=== PATIENT | male | born 1990 | race Caucasian/White ===

== ENCOUNTER 2024-08-05 13:36 | Emergency (ER) | payer SELFPAY ==
[~2024-08-05] VITALS: Ht 177.8 cm; Wt 90.7 kg
[2024-08-05 13:45] VITALS: BP_SYST 132; PULSE 68; RESP 16; TEMP 97; O2SAT 99
[2024-08-05 14:47] LABS: BASOPHILS % (AUTO) 0.4 % (0.0-2.0); EOSINOPHILS # (AUTO) 0.1 K/uL (0.0-0.4); EOSINOPHILS % (AUTO) 1.7 % (0.0-4.0); HEMATOCRIT 45.7 % (36-54); HEMOGLOBIN 15.7 g/dL (14.0-18.0); LYMPHOCYTES # (AUTO) 2.5 K/uL (1.0-5.5); LYMPHOCYTES % (AUTO) 32.7 % (20.5-51.5); MEAN CORPUSCULAR HEMOGLOBIN 31 pg (27-31); MEAN CORPUSCULAR HGB CONC 34 % (32-36); MEAN CORPUSCULAR VOLUME 90 fL (79.0-98.0); MONOCYTES # (AUTO) 0.5 K/uL (0.0-1.0); NEUTROPHILS # (AUTO) 4.4 K/uL (1.8-7.7); NEUTROPHILS % (AUTO) 59.2 % (40.0-70.0); PLATELET COUNT (AUTO) 228 K/uL (130-430); RED BLOOD CELL COUNT(AUTO) 5.06 MIL/uL (4.2-6.2); RED CELL DISTRIBUTION WIDTH 12.6 % (9.0-15.0); WHITE BLOOD COUNT (AUTO) 7.5 K/uL (4.8-10.8)
[2024-08-05 14:56] LABS: ANION GAP 5 (5-15); CALCIUM 9.7 mg/dL (8.4-11.0); CARBON DIOXIDE 31 mmol/L (23-29); CHLORIDE 100 mmol/L (98-107); CREATININE 1.16 mg/dL (0.55-1.30); GFR AFRICAN AMERICAN 93 mL/min (>90); GLUCOSE 99 mg/dL (74-106); POTASSIUM 5.2 mmol/L (3.5-5.1); SODIUM SERUM 136 mmol/L (136-145); UREA NITROGEN, BLOOD 16 mg/dL (8-21)
[2024-08-05 15:00] LABS: GFR NON AFRICAN-AMERICAN 77 mL/min (>90)
[2024-08-05] MEDS ORDERED: OMEP20CA15 PO (15:23)
[2024-08-05 15:29] VITALS: PULSE 68; RESP 16; TEMP 97; O2SAT 99
== END 2024-08-05 15:30 | disposition home or self-care (01) ==
LOC: SED 13:36
DX: R07.89 Other chest pain (principal)
CPT/HCPCS: 36415; 71045; 80048; 84484; 85025; 93005; 99285